=== PATIENT | male | born 1940 | race Caucasian/White ===

== ENCOUNTER 2018-05-28 18:33 | Emergency (ER) | payer MEDICARE, BC ==
[2018-05-28] MEDS ORDERED: Simethicone 80 MG Tab.Chew PO ONE (19:25)
--- NOTE | 2018-05-28 19:26 | EDM.PDOC ---
ED HPI GENERAL MEDICAL PROBLEM - General Chief Complaint: Abdominal Pain Stated Complaint: ABDOMINAL PAIN Time Seen by Provider: 05/28/18 19:15 Source of Information: Reports: Patient, Family, RN History Limitations: Reports: Other (no old records, suboptimal historian) - History of Present Illness INITIAL COMMENTS - FREE TEXT/NARRATIVE: 77 yo male from [place] presents from home with his for diffuse abdominal pain with some distention. He usually goes to [place], but came here because it was a bit closer. Now that he is here his sx's are mostly gone. He has no hx of any abdominal surgeries. He has had surgery on his heart and prostate. No fever. Has some mild, chronic constipation. No nausea. No self tx before arrival. Is not completely sure of his meds, but has not missed any of them. Is also concerned because his BP today is higher than normal but he has no KIRAN, CP, or SOB. He and his think his face is flushed, but he used a new soap on the face today and the flushing began right after its use. Onset: Today Onset Date: 05/28/18 Onset Time: 15:30 Duration: Hour(s): Location: Reports: Abdomen, Generalized Quality: Reports: Pressure Severity: Moderate Improves with: Reports: Other (? time, is almost gone now.) Worsens with: Reports: Other (unknown) Context: Reports: Other (see HPI) Associated Symptoms: Denies: Chest Pain, Fever/Chills, Loss of Appetite, Nausea/ Vomiting, Rash, Shortness of Breath Treatments EATING DISORDER SPECIALIST: Reports: Other (see below) (usual meds only) Lower Abdominal Pain Score (Numeric/FACES): 6 - Related Data Allergies Allergy/AdvReac Type Severity Reaction Status Date / Time Iodinated Contrast- Oral and Allergy Hives Verified 05/28/18 18:54 IV Dye Home Meds: Home Meds Aspirin [Ecotrin] 1 tab PO BEDTIME 05/28/18 [History] Esomeprazole Magnesium [Nexium] 40 mg PO DAILY 05/28/18 [History] Losartan [Cozaar] 100 mg PO DAILY 05/28/18 [History] Metoprolol Succinate [Toprol XL 100mg] 100 mg PO DAILY 05/28/18 [History] Nitroglycerin [Nitrostat] 0.4 mg SL ASDIRECTED 05/28/18 [History] Rivaroxaban [Xarelto] 20 mg PO DAILY 05/28/18 [History] amLODIPine [Norvasc] 0.5 tab PO DAILY 05/28/18 [History] atorvaSTATin [Lipitor] 40 mg PO BEDTIME 05/28/18 [History] hydroCHLOROthiazide [Hydrochlorothiazide] 25 mg PO DAILY 05/28/18 [History] Past Medical History HEENT History: Reports: Hard of Hearing, Impaired Vision, Other (See Below) Other HEENT History: left eye blindness Cardiovascular History: Reports: Afib, Arrhythmia, CAD, High Cholesterol, Hypertension, OH, Pacemaker Respiratory History: Reports: Bronchitis, Recurrent, Pneumonia, Recurrent Gastrointestinal History: Reports: Chronic Constipation, GERD Genitourinary History: Reports: Prostate Disorder, Renal Calculus Musculoskeletal History: Reports: Other (See Below) Other Musculoskeletal History: left shoulder issuues Neurological History: Reports: TIA Psychiatric History: Reports: Anxiety Endocrine/Metabolic History: Reports: Other (See Below) Other Endocrine/Metabolic History: borderline diabetes Hematologic History: Reports: Anticoagulation Therapy, Blood Transfusion(s) Oncologic (Cancer) History: Reports: Prostate Dermatologic History: Reports: Eczema, Psoriasis - Past Surgical History Cardiovascular Surgical History: Reports: Coronary Artery Bypass, Pacer, Other ( See Below) Other Cardiovascular Surgeries/Procedures: defibulator GI Surgical History: Reports: Colonoscopy Male Surgical History: Reports: Prostate Biopsy, Prostatectomy Social & Family History - Tobacco Use Smoking Status *Q: Never Smoker - Caffeine Use Caffeine Use: Reports: Coffee ED ROS GENERAL - Review of Systems Review Of Systems: See Below Constitutional: Reports: No Symptoms HEENT: Reports: No Symptoms Respiratory: Reports: No Symptoms Cardiovascular: Reports: No Symptoms Endocrine: Reports: No Symptoms GI/Abdominal: Reports: Abdominal Pain (feels bloated), Constipation (mild chronic, had fairly normal BM's today). Denies: Black Stool, Bloody Stool, Diarrhea, Decreased Appetite, Distension, Flatus, Hematemesis, Hematochezia, Melena, Nausea, Vomiting : Reports: No Symptoms Musculoskeletal: Reports: No Symptoms Skin: Reports: No Symptoms Neurological: Reports: No Symptoms Psychiatric: Reports: No Symptoms ED EXAM, GI/ABD - Physical Exam Exam: See Below Exam Limited By: No Limitations General Appearance: Alert, WD/WN, No Apparent Distress Eyes: Bilateral: Normal Appearance Ears: Normal External Exam, Normal Canal, Normal TMs, Hearing Loss (mild) Nose: Normal Inspection, No Blood Throat/Mouth: Normal Inspection, Normal Lips, Normal Oropharynx, Normal Voice, No Airway Compromise Head: Atraumatic, Normocephalic Neck: Normal Inspection, Non-Tender Respiratory/Chest: No Respiratory Distress, Lungs Clear, Normal Breath Sounds, No Accessory Muscle Use Cardiovascular: Regular Rate, Rhythm, No Edema GI/Abdominal Exam: Normal Bowel Sounds, Non-Tender, Distended (mild). No: No Distention, Guarding, Rigid, Rebound, Tender Back Exam: Normal Inspection. No: CVA Tenderness (R), CVA Tenderness (L) Extremities: Normal Inspection, Normal Range of Motion, Non-Tender, No Pedal Edema Neurological: Alert, Oriented, CN II-XII Intact, Normal Cognition, No Motor/ Sensory Deficits Psychiatric: Normal Affect, Normal Mood Skin Exam: Warm, Dry, Intact, No Rash, Erythema (slight facial flushing) Lymphatic: No Adenopathy Course - Vital Signs Last Recorded V/S: Last Vital Signs Temp 35.7 C 05/28/18 19:01 Pulse 64 05/28/18 19:01 Resp 15 05/28/18 19:01 BP 180/84 H 05/28/18 19:01 Pulse Ox 96 05/28/18 19:01 - Orders/Labs/Meds Meds: Medications Discontinued Medications Generic Name Dose Route Start Last Admin Trade Name Freq PRN Reason Stop Dose Admin Simethicone 160 mg 05/28/18 19:25 Simethicone PO 05/28/18 19:26 ONETIME ONE Departure - Departure Time of Disposition: 19:34 Disposition: Home, Self-Care 01 Condition: Good Clinical Impression: Abdominal pain Qualifiers: Abdominal location: generalized Qualified Code(s): R10.84 - Generalized abdominal pain HTN (hypertension) Qualifiers: Hypertension type: essential hypertension Qualified Code(s): I10 - Essential ( primary) hypertension - Discharge Information *PRESCRIPTION DRUG MONITORING PROGRAM REVIEWED*: No *COPY OF PRESCRIPTION DRUG MONITORING REPORT IN PATIENT ANNABEL: No Instructions: Abdominal Bloating Referrals: Jamie Mcdonnell MD [Primary Care Provider] - Forms: ED Department Discharge Additional Instructions: Use simethicone per package instructions for gas pains. Increase your fiber product and fluid intake as needed to keep your stools regular and soft. Recheck with Dr. Mcdonnell regarding your elevated BP. Discontinue the soap you used on your face today.
== END 2018-05-28 19:58 | disposition home or self-care (01) ==
LOC: JP.ED 18:33
DX: R10.84 Generalized abdominal pain (principal); I10 Essential (primary) hypertension; E78.00 Pure hypercholesterolemia, unspecified; I48.91 Unspecified atrial fibrillation; F41.9 Anxiety disorder, unspecified; K21.9 Gastro-esophageal reflux disease without esophagitis; I25.2 Old myocardial infarction; Z79.82 Long term (current) use of aspirin; Z79.899 Other long term (current) drug therapy; Z86.73 Personal history of transient ischemic attack (TIA), and cerebral infarction without residual deficits; Z91.041 Radiographic dye allergy status
CPT/HCPCS: 99283; A9270